=== PATIENT | male | born 1940 | race Caucasian/White ===

== ENCOUNTER 2016-09-14 10:27 | Emergency (ER) | payer BC ==
[2016-09-14 10:43] VITALS: BP 137/65
[2016-09-14] MEDS ORDERED: Sodium Chloride 0.9% 1,000 ML IV SCH (11:15)
--- NOTE | 2016-09-14 11:17 | EDM.PDOC ---
ED HPI GENERAL MEDICAL PROBLEM - General Chief Complaint: Back Pain or Injury Stated Complaint: CHEST CONGESTION AND KIDNEY PAIN Time Seen by Provider: 09/14/16 10:41 Source of Information: Reports: Patient, Family (), RN Notes Reviewed History Limitations: Reports: No Limitations - History of Present Illness INITIAL COMMENTS - FREE TEXT/NARRATIVE: The patient and his are visiting from [place]. The patient states that he was seen at the [facility] this past 09/10/2016, for a cough productive of clear sputum for the prior 2-1/2 weeks. He was also experiencing left lower quadrant and left flank pain. He had not had a fever. He states that a urinalysis was performed, finding high blood sugar but no blood or UTI. A CT scan of his chest and (likely) abdomen without contrast was performed, apparently revealing pneumonia. He was started on Levaquin and Tessalon Perles. He now presents with worsening left lower quadrant and left flank pain, although he states that his cough has improved. He has still not had a fever. No shortness of breath, chest pain, palpitations, vomiting, diarrhea, or constipation. He reports that he had some nausea this morning. Left Middle Back Pain Score (Numeric/FACES): 3 - Related Data Allergies Allergy/AdvReac Type Severity Reaction Status Date / Time Beta-Blockers Allergy Wheezing Verified 09/14/16 10:43 (Beta-Adrenergic Bloc Past Medical History HEENT History: Reports: Glaucoma Cardiovascular History: Reports: High Cholesterol, Hypertension Respiratory History: Reports: Asthma Gastrointestinal History: Reports: GERD Musculoskeletal History: Reports: Arthritis (left knee) Endocrine/Metabolic History: Reports: Diabetes, Type II - Past Surgical History HEENT Surgical History: Reports: Tonsillectomy Musculoskeletal Surgical History: Reports: Knee Replacement (right) Social & Family History - Tobacco Use Smoking Status *Q: Never Smoker Second Hand Smoke Exposure: No - Alcohol Use Alcohol Use History: Yes Alcohol Use Frequency: Socially - Recreational Drug Use Recreational Drug Use: No - Living Situation & Occupation Living situation: Reports: , with Spouse Occupation: Retired ED ROS GENERAL - Review of Systems Review Of Systems: See Below Constitutional: Reports: No Symptoms. Denies: Fever HEENT: Reports: No Symptoms Respiratory: Reports: Cough, Sputum (clear). Denies: Shortness of Breath, Wheezing Cardiovascular: Reports: No Symptoms Endocrine: Reports: No Symptoms GI/Abdominal: Reports: Abdominal Pain (LLQ), Nausea. Denies: Constipation, Diarrhea, Vomiting : Reports: No Symptoms Musculoskeletal: Reports: No Symptoms Skin: Reports: No Symptoms Neurological: Reports: No Symptoms Psychiatric: Reports: No Symptoms Hematologic/Lymphatic: Reports: No Symptoms Immunologic: Reports: No Symptoms ED EXAM, GI/ABD - Physical Exam Exam: See Below Exam Limited By: No Limitations General Appearance: Alert, WD/WN, No Apparent Distress Eyes: Bilateral: Normal Appearance, EOMI Ears: Normal External Exam, Hearing Grossly Normal Nose: Normal Inspection, No Blood Throat/Mouth: Normal Inspection, Normal Lips, Normal Voice, No Airway Compromise Head: Atraumatic, Normocephalic Neck: Normal Inspection, Full Range of Motion Respiratory/Chest: No Respiratory Distress, Lungs Clear, Normal Breath Sounds, No Accessory Muscle Use. No: Crackles, Rhonchi, Wheezing Cardiovascular: Normal Peripheral Pulses, Regular Rate, Rhythm, No Gallop, No JVD, No Murmur, No Rub GI/Abdominal: Normal Bowel Sounds, Soft, No Organomegaly, No Distention, No Abnormal Bruit, No Mass, Tenderness (Left lower quadrant only. Essentially nontender elsewhere.) (Male) Exam: Deferred Rectal (Males) Exam: Deferred Back Exam: Normal Inspection, Full Range of Motion. No: CVA Tenderness (L) ( Pain is felt in the left flank, but there is no tenderness to palpation or percussion.), CVA Tenderness (R) Extremities: Normal Inspection, Normal Range of Motion, No Pedal Edema, Normal Capillary Refill Neurological: Alert, Oriented, Normal Cognition, No Motor/Sensory Deficits Psychiatric: Normal Affect Skin Exam: Warm, Dry, Intact, Normal Color, No Rash Lymphatic: No Adenopathy Course - Vital Signs Last Recorded V/S: Last Vital Signs Temp 37.1 C 09/14/16 10:40 Pulse 72 09/14/16 10:40 Resp 16 09/14/16 10:40 BP 137/65 09/14/16 10:40 Pulse Ox 97 09/14/16 10:40 - Orders/Labs/Meds Orders: Active Orders 24 hr Category Date Time Status Sodium Chloride 0.9% [Normal Saline] 1,000 ml Med 09/14/16 11:15 Active IV ASDIRECTED Sodium Chloride 0.9% [Normal Saline] 100 ml Med 09/14/16 12:15 Active IV ASDIRECTED Medication Orders Sodium Chloride (Normal Saline) 1,000 mls @ 150 mls/hr IV ASDIRECTED NARINDER Last Admin: 09/14/16 11:19 Dose: 150 mls/hr Sodium Chloride (Normal Saline) 100 mls @ 65 mls/hr IV ASDIRECTED NARINDER Last Admin: 09/14/16 12:33 Dose: 65 mls/hr Labs: Laboratory Tests 09/14/16 09/14/16 09/14/16 Range/Units 11:10 11:10 11:15 WBC 11.48 H (4.23-9.07) K/mm3 RBC 4.65 (4.63-6.08) M/mm3 Hgb 13.1 L (13.7-17.5) gm/L Hct 38.5 L (40.1-51.0) % MCV 82.8 (79.0-92.2) fl MCH 28.2 (25.7-32.2) pg MCHC 34.0 (32.2-35.5) g/dl RDW Std Deviation 42.3 (35.1-43.9) fL Plt Count 316 (163-337) K/mm3 MPV 9.8 (9.4-12.3) fl Neutrophils % (Manual) 88 H (40-60) % Band Neutrophils % 0 (0-10) % Lymphocytes % (Manual) 9 L (20-40) % Atypical Lymphs % 0 % Monocytes % (Manual) 3 (2-10) % Eosinophils % (Manual) 0 L (0.8-7.0) % Basophils % (Manual) 0 L (0.2-1.2) Platelet Estimate Adequate Plt Morphology Comment Normal RBC Morph Comment Normal Sodium 138 (136-145) mEq/L Potassium 3.4 L (3.5-5.1) mEq/L Chloride 101 (98-107) mEq/L Carbon Dioxide 26 (21-32) mEq/L Anion Gap 14.4 (5-15) BUN 10 (7-18) mg/dL Creatinine 1.3 (0.7-1.3) mg/dL Est Cr Clr Drug Dosing 53.89 mL/min Estimated GFR (MDRD) 54 (>60) mL/min BUN/Creatinine Ratio 7.7 L (14-18) Glucose 209 H (83-115) mg/dL Calcium 8.9 (8.5-10.1) mg/dL Total Bilirubin 0.6 (0.2-1.0) mg/dL AST 10 L (15-37) U/L ALT 18 (16-63) U/L Alkaline Phosphatase 119 H (46-116) U/L Total Protein 8.7 H (6.4-8.2) g/dl Albumin 2.9 L (3.4-5.0) g/dl Globulin 5.8 gm/dL Albumin/Globulin Ratio 0.5 L (1-2) Lipase 164 (73-393) U/L Urine Color Yellow (Yellow) Urine Appearance Clear (Clear) Urine pH 7.0 (5.0-8.0) Ur Specific [place] > or = 1.030 (1.005-1.030) Urine Protein 2+ H (Negative) Urine Glucose (UA) 1+ H (Negative) Urine Ketones Trace H (Negative) Urine Occult Blood Negative (Negative) Urine Nitrite Negative (Negative) Urine Bilirubin Negative (Negative) Urine Urobilinogen 1.0 (0.2-1.0) Ur Leukocyte Esterase Negative (Negative) Urine RBC 0-5 (0-5) /hpf Urine WBC 0-5 (0-5) /hpf Ur Epithelial Cells 0-5 (0-5) /hpf Urine Bacteria Not seen (FEW) /hpf Urine Mucus Many H (FEW) /hpf Meds: Medications Generic Name Dose Route Start Last Admin Trade Name Freq PRN Reason Stop Dose Admin Sodium Chloride 1,000 mls @ 150 mls/hr 09/14/16 11:15 09/14/16 11:19 Normal Saline IV 150 mls/hr ASDIRECTED NARINDER Administration Sodium Chloride 100 mls @ 65 mls/hr 09/14/16 12:15 09/14/16 12:33 Normal Saline IV 65 mls/hr ASDIRECTED NARINDER Administration Discontinued Medications Generic Name Dose Route Start Last Admin Trade Name Freq PRN Reason Stop Dose Admin Diatrizoate Meglum/Diatrizoate Sod 90 ml 09/14/16 12:02 09/14/16 12:33 Gastrografin 37% PO 09/14/16 12:03 90 ml ONETIME ONE Administration Iopamidol 100 ml 09/14/16 12:02 09/14/16 12:33 [id number] (76%) IVPUSH 09/14/16 12:03 100 ml ONETIME ONE Administration Iopamidol 25 ml 09/14/16 12:02 09/14/16 12:33 [id number] (76%) IVPUSH 09/14/16 12:03 25 ml ONETIME ONE Administration - Radiology Interpretation Free Text/Narrative:: CT of the abdomen and pelvis with oral and IV contrast is read by Dr. Mariscal as: 1. Increased density at the left base suspicious for pneumonia. 2. Small adrenal nodule on the right side most likely representing benign adenoma. Minimal nodularity to the left adrenal gland which is felt to be incidental. 3. Mild increased stool and other incidental findings as noted above. 4. Nothing acute is appreciated on CT study of the abdomen and pelvis. - Re-Assessments/Exams Free Text/Narrative Re-Assessment/Exam: 09/14/16 13:36 Test results discussed with the patient and his . Today's workup is grossly unremarkable, and does not extend because of the patient's left flank and left lower quadrant abdominal pain and tenderness. The CT scan noted an infiltrate in the lower left lung, but that would not cause the patient's symptoms, and does not mean that his pneumonia is resolving, as the infiltrate may take up to a month to resolve. I'm recommending the patient finish his prescription for Levaquin, and that he slat pickler a copy of his CT scan on CD-ROM before he returns to [place] on 2016. Departure - Departure Time of Disposition: 13:37 Disposition: Home, Self-Care 01 Condition: Good Clinical Impression: Left flank pain, Abdominal pain of unknown etiology, Left lower lobe pneumonia - Discharge Information Forms: ED Department Discharge Additional Instructions: You were seen in the emergency room for left flank and lower left abdominal pain. Workup in the ER included blood work, a urinalysis, and a CT scan of your abdomen and pelvis. Your entire workup was unremarkable, and does not explain the cause of your symptoms. The CT scan noticed the infiltrate at the lower left portion of your lung, consistent with pneumonia. We recommend that you finish the previously prescribed Levaquin. Take [id number] ibuprofen as needed. We recommend that you slat pickler a copy of your CT scan on CD-ROM before returning home on 09/27/2016. If any other problems, please do not hesitate to return to the ER. - My Orders Last 24 Hours: My Active Orders 09/14/16 11:15 Sodium Chloride 0.9% [Normal Saline] 1,000 ml IV ASDIRECTED 09/14/16 12:15 Sodium Chloride 0.9% [Normal Saline] 100 ml IV ASDIRECTED - Assessment/Plan Last 24 Hours: My Active Orders 09/14/16 11:15 Sodium Chloride 0.9% [Normal Saline] 1,000 ml IV ASDIRECTED 09/14/16 12:15 Sodium Chloride 0.9% [Normal Saline] 100 ml IV ASDIRECTED
[2016-09-14] MEDS ORDERED: Iopamidol 755 Mg/ML 100 ML Bottle IVPUSH ONE (12:02)
[2016-09-14] MEDS ORDERED: Iopamidol 755 MG/ML 50 ML Bottle IVPUSH ONE (12:02)
[2016-09-14] MEDS ORDERED: Diatrizoate Meglumine/Diatrizoate Sodium 37% 120 ML Bottle PO ONE (12:02)
[2016-09-14] MEDS ORDERED: Sodium Chloride 0.9% 100 ML IV SCH (12:15)
--- NOTE | 2016-09-14 12:56 | CT ---
CT abdomen and pelvis Technique: Multiple axial sections were obtained from above the dome of the diaphragm inferiorly through the pubic symphysis. Intravenous and oral contrast has been given. Comparison: No previous abdominal imaging is available. Findings: Visualized lung bases shows increased density within the left base suspicious for pneumonia. Liver shows no focal parenchymal abnormality. Spleen appears within normal limits. Small nodule noted within the right adrenal gland measuring 1.2 cm most likely representing a small incidental adrenal adenoma. Left adrenal gland is minimally nodular also felt to be incidental. Kidneys show symmetric contrast enhancement without hydronephrosis. Several low-density lesions are noted within the kidneys which are too small to accurately characterize by Hounsfield unit measurements but statistically are likely due to cysts. Pancreas is unremarkable. Aorta shows mild atherosclerotic change without aneurysmal dilatation. No retroperitoneal adenopathy is seen. Appendix is seen which is normal. No pelvic mass or adenopathy is identified. Small fat-containing right inguinal hernia is seen. Mild increased stool is noted within portions of the colon. Delayed images shows contrast within the distal ureters and within the bladder. Scattered degenerative change noted throughout the spine. Impression: 1. Increased density at the left base suspicious for pneumonia. 2. Small adrenal nodule on the right side most likely representing benign adenoma. Minimal nodularity to the left adrenal gland which is felt to be incidental. 3. Mild increased stool and other incidental findings as noted above. 4. Nothing acute is appreciated on CT study of the abdomen and pelvis. Diagnostic code #3
== END 2016-09-14 13:45 | disposition home or self-care (01) ==
LOC: JD.ED 10:27
DX: J18.9 Pneumonia, unspecified organism (principal); R10.32 Left lower quadrant pain; I10 Essential (primary) hypertension; E78.00 Pure hypercholesterolemia, unspecified; J45.909 Unspecified asthma, uncomplicated; K21.9 Gastro-esophageal reflux disease without esophagitis; E11.9 Type 2 diabetes mellitus without complications; M19.90 Unspecified osteoarthritis, unspecified site; Z88.8 Allergy status to other drugs, medicaments and biological substances; Z96.651 Presence of right artificial knee joint; Z98.890 Other specified postprocedural states
CPT/HCPCS: 36415; 74177; 80053; 81001; 83690; 85025; 96360; 96361; 99284; J7030; J7040; Q9963; Q9967